=== PATIENT | male | born 1945 | race Caucasian/White ===

== ENCOUNTER → 2019-08-29 | Outpatient (CLI) | payer MEDICARE, OTHER, SELFPAY | END | disposition home or self-care (01) | PROVIDERS: PCP Family Medicine; Referring Provider Dermatology; Visit Provider Dermatology | DX: L01.00 Impetigo, unspecified (principal); B95.61 Methicillin susceptible Staphylococcus aureus infection as the cause of diseases classified elsewhere | CPT/HCPCS: 87070; 87077; 87186; 87205 ==

== ENCOUNTER → 2024-09-30 | Outpatient (CLI) | payer MEDICARE, OTHER, SELFPAY ==
--- NOTE | 2024-09-30 12:48 | ART_ITS ---
Reason For Study Reason For Study: PVD Procedure A bilateral lower extremity continuous wave Doppler with analog waveform analysis,segmental pressures,and ankle brachial indexes without exercise. Left Segmental Pressures Left brachial= 179mmHg. Left high thigh = 180mmHg. Left low thigh = 104mmHg. Left calf = 124mmHg. Left posterior tibial artery = >254mmHg. Left dorsalis pedis artery = 107mmHg. Left digit = 77 mmHg. Right Segmental Pressures Right brachial= 179mmHg. Right high thigh = >254mmHg. Right low thigh = 138mmHg. Right calf = 138mmHg. Right posterior tibial artery = >254mmHg. Right dorsalis pedis artery = 95mmHg. Right digit = 44 mmHg. Indices The right ankle brachial index by the posterior tibial artery is NC. The right ankle brachial index by the dorsalis pedis is 0.53. The right digital-brachial index is 0.25. The left ankle brachial index by the posterior tibial artery is NC. The left ankle brachial index by the dorsalis pedis is 0.60. The left digital-brachial index is 0.43. VL/Lower Ext Art Exam w/o Exercis Interpretation Summary Right FILOMENA 0.53, moderate arterial insuffiencey. Doppler/PVR waveforms and segme ntal pressures reveal aorto-iliac, distal SFA/popliteal disease Left FILOMENA 0.6, moderate arterial insufficiency. Doppler/PVR waveforms and segmen laura pressures reveal proximal femoral, infrapopliteal disease. Ordering Physician: Joyce Clark Referring Physician: Mendez Cantor Performed By: Betty Lewis RDCS/RVT
== END | disposition home or self-care (01) ==
LOC: CVS 12:48
PROVIDERS: PCP Family Medicine; Referring Provider Physician Assistant; Visit Provider Physician Assistant
DX: I73.9 Peripheral vascular disease, unspecified (principal)
CPT/HCPCS: 93923